=== PATIENT | male | born 1965 | race Caucasian/White ===

== ENCOUNTER 2016-11-30 07:59 | Inpatient (IN) | payer OTHER, MEDICAID ==
[2016-11-30] MEDS ORDERED: NS 1,000 ML IV ONE (08:10)
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
[2016-11-30] MEDS ORDERED: IOPAMIDOL (ISOVUE-300) 100 ML BTL IV ONE (08:15)
[2016-11-30 08:26] LABS: ABSOLUTE IMMATURE GRANULOCYTES 0.07 10^3/uL (0.00-0.10); ADD DIFF? NO; ADD MORPH? NO; ADD SCAN? YES; FRAGMENT RBC FLAG 0 (0-99); HEMOGLOBIN 16.2 g/dL (13.7-17.5); LEFT SHIFT FLG 0 (0-99); LIPEMIA HEMOLYSIS FLAG 90 (0-99); MEAN CELL HEMOGLOBIN 32.3 pg (27.9-34.1); MEAN CELL HEMOGLOBIN CONCENTR. 34.5 g/dL (32.4-36.7); MEAN CELL VOLUME 93.6 fL (81.5-99.8); MEAN PLATELET VOLUME 9.2 fL (8.7-11.7); PLATELET CLUMPS FLAG 20 (0-99); PLATELET COUNT 214 10^3/uL (150-400); RED BLOOD CELL COUNT 5.02 10^6/uL (4.40-6.38); RED CELL DISTRIBUTION WIDTH 12.2 % (11.5-15.2)
[2016-11-30 08:28] LABS: ATYPICAL LYMPHOCYTE FLAG 300 (0-99)
[2016-11-30 08:33] LABS: INR 0.97 (0.83-1.16); PROTIME(PATIENT) 12.8 SEC (12.0-15.0)
[2016-11-30 08:34] LABS: APTT 28.5 SEC (23.0-38.0)
[2016-11-30 08:37] LABS: ANION GAP 16 mEq/L (8-16); CALCIUM 9.3 mg/dL (8.5-10.4); CARBON DIOXIDE 22 mEq/l (22-31); CHLORIDE 107 mEq/L (97-110); CREATININE 0.8 mg/dL (0.7-1.3); ETHANOL SERUM 97 mg/dL (0-10); GLOMERULAR FILTRATION RATE > 60; GLUCOSE 81 mg/dL (70-100); POTASSIUM 4.6 mEq/L (3.5-5.2); SODIUM 145 mEq/L (134-144)
[2016-11-30 08:46] LABS: SCAN POSITIVE
[2016-11-30 08:51] LABS: PLATELET ESTIMATE ADEQUATE (ADEQ)
[2016-11-30] MEDS ORDERED: fentaNYL 100 MCG/2 ML INJ IVP ONE (09:10)
[2016-11-30] MEDS ORDERED: fentaNYL 100 MCG/2 ML INJ ONE (09:38)
[2016-11-30] MEDS ORDERED: HYDROmorphONE/DILAUDID 1 MG/ML SYR IVP ONE (09:45)
[2016-11-30] MEDS ORDERED: HYDROmorphONE/DILAUDID 1 MG/ML SYR ONE (09:57)
[2016-11-30] MEDS ORDERED: ACETAMINOPHEN 325 MG TAB PO PRN (10:27)
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
[2016-11-30] MEDS: HYDROCODONE/APAP 5/325 TAB PO PRN ×3 (11:15→22:42)
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
[2016-11-30] MEDS: oxyCODONE IR 5 MG TAB PO PRN ×3 (13:57→21:01)
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
--- NOTE | 2016-11-30 18:56 | TRAUMAPN ---
Assessment/Plan: repeat CT head normal. patient doing reasonably well. pain adeq control with oxycodone. change to floor status. anticipate dc tomorrow. Objective: Vital Signs Temp Pulse Resp BP Pulse Ox 37 C 73 18 150/100 H 94 11/30/16 16:00 11/30/16 18:00 11/30/16 18:00 11/30/16 18:00 11/30/16 18:00 11/29/16 11/30/16 12/01/16 05:59 05:59 05:59 Intake Total 1200 Output Total 2000 Balance -800 PT 12.8 SEC (12.0-15.0) 11/30/16 07:50 INR 0.97 (0.83-1.16) 11/30/16 07:50
[2016-11-30] MEDS: DOCUSATE SODIUM 100 MG CAP PO SCH (21:01)
[2016-12-01] MEDS: oxyCODONE IR 5 MG TAB PO PRN ×7 (00:50→22:36)
[2016-12-01] MEDS: HYDROCODONE/APAP 5/325 TAB PO PRN ×2 (04:13→10:24)
[2016-12-01] MEDS: DOCUSATE SODIUM 100 MG CAP PO SCH ×2 (07:11→19:30)
--- NOTE | 2016-12-01 07:15 | SOAPPROG ---
SOAP Progress Note Assessment/Plan: Assessment/Plan no new overnight issues. pain controlled with oxycodone. KHAN better. no visual changes. left side rib pain only. no SOB. no abd c/o. no new aches or pains with ambulation. AVSS. comfortable. neck nontender. heart regular. lungs clear. abd soft, nontender. left chest tenderness appropriate. ext - normal BUE/BLE without tenderness. doing well clinically. discharge today. social work eval to help with transportation to car compound/hotel. f/u prn. ok to use NSAID given normal head CT in addition to narcotic. Objective: Vital Signs Temp Pulse Resp BP Pulse Ox 36.6 C 70 20 154/98 H 94 12/01/16 00:00 12/01/16 00:00 12/01/16 00:00 12/01/16 00:00 12/01/16 00:00 11/30/16 12/01/16 12/02/16 05:59 05:59 05:59 Intake Total 1750 Output Total 2000 600 Balance -250 -600 PT 12.8 SEC (12.0-15.0) 11/30/16 07:50 INR 0.97 (0.83-1.16) 11/30/16 07:50 ICD10 Worksheet Patient Problems: Problems Problem Status Onset Alcohol intoxication Acute Rib fracture Acute
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
[2016-12-01] MEDS: ONDANSETRON 4 MG/2 ML VIAL IVP PRN ×2 (10:33→15:56)
[2016-12-02] MEDS: HYDROCODONE/APAP 5/325 TAB PO PRN ×3 (07:13→18:13)
[2016-12-02] MEDS: DOCUSATE SODIUM 100 MG CAP PO SCH ×2 (07:13→20:08)
[2016-12-02] MEDS: ONDANSETRON 4 MG/2 ML VIAL IVP PRN (08:30)
[2016-12-02] MEDS ORDERED: ONDANSETRON DISINTEGRATING 4 MG TAB PO PRN (08:32)
[2016-12-02] MEDS ORDERED: METOPROLOL SUCCINATE XR 25 MG TAB PO ONE (08:35)
[2016-12-02] MEDS ORDERED: ONDANSETRON DISINTEGRATING 4 MG TAB ONE (08:35)
[2016-12-02] MEDS ORDERED: METOPROLOL TARTRATE 25 MG TAB ONE (08:35)
[2016-12-02] MEDS ORDERED: METOPROLOL TARTRATE 25 MG TAB PO SCH (09:00)
[2016-12-02] MEDS ORDERED: amLODIPine BESYLATE 5 MG TAB ONE (09:28)
[2016-12-02] MEDS: amLODIPine BESYLATE 5 MG TAB PO SCH (09:30)
[2016-12-02] MEDS: oxyCODONE IR 5 MG TAB PO PRN ×4 (09:30→22:43)
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
--- NOTE | 2016-12-02 10:51 | CPEKG ---
Heart Rate: 71 RR Interval: 845 P-R Interval: 176 QRSD Interval: 106 QT Interval: 400 QTC Interval: 435 P Hernando: 34 QRS Hernando: 30 T Wave Hernando: 16 EKG Severity - NORMAL ECG - EKG Impression: SINUS RHYTHM Electronically Signed By: Josue Kingston 03-Dec-2016 08:40:31
[2016-12-02] MEDS ORDERED: LIDOCAINE 5% 1 EA PATCH TD ONE (11:12)
[2016-12-02] MEDS ORDERED: traMADol 50 MG TAB ONE (11:12)
[2016-12-02] MEDS: traMADol 50 MG TAB PO PRN ×2 (11:15→21:55)
[2016-12-02] MEDS ORDERED: LISINOPRIL 5 MG TAB ONE (12:42)
[2016-12-02] MEDS: LISINOPRIL 5 MG TAB PO SCH (12:45)
[2016-12-02] MEDS: LIDOCAINE 5% 1 EA PATCH TD SCH (12:47)
[2016-12-02] MEDS: KETOROLAC 15 MG/1 ML SDV IVP SCH ×2 (12:47→18:08)
[2016-12-02 16:11] VITALS: TEMP 98
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
[2016-12-02] MEDS ORDERED: LACTULOSE 20 GM/30 ML UDCUP PO PRN (18:42)
[2016-12-02] MEDS ORDERED: BISACODYL 10 MG SUPP PR PRN (18:42)
[2016-12-02] MEDS ORDERED: POLYETHYLENE GLYCOL 3350 17 GM PKT PO PRN (18:42)
[2016-12-02] MEDS ORDERED: MAGNESIUM HYDROXIDE 30 ML UDCUP PO PRN (18:42)
[2016-12-02] MEDS: SENNOSIDES/DOCUSATE SODIUM TAB PO SCH (20:08)
[2016-12-02] MEDS ORDERED: PATCH REMOVAL 1 EA PATCH TD SCH (21:00)
[2016-12-03] MEDS: HYDROCODONE/APAP 5/325 TAB PO PRN ×2 (00:23→10:28)
[2016-12-03] MEDS: KETOROLAC 15 MG/1 ML SDV IVP SCH ×2 (00:24→04:47)
[2016-12-03] MEDS: oxyCODONE IR 5 MG TAB PO PRN ×3 (04:46→11:38)
[2016-12-03] MEDS: traMADol 50 MG TAB PO PRN (06:29)
[2016-12-03 07:46] VITALS: BP 149/106; PULSE 70; RESP 14; O2SAT 96
[2016-12-03] MEDS: DOCUSATE SODIUM 100 MG CAP PO SCH (08:23)
[2016-12-03] MEDS: SENNOSIDES/DOCUSATE SODIUM TAB PO SCH (08:24)
[2016-12-03] MEDS: LIDOCAINE 5% 1 EA PATCH TD SCH (08:26)
[2016-12-03] MEDS: amLODIPine BESYLATE 5 MG TAB PO SCH (08:26)
[2016-12-03] MEDS: LISINOPRIL 5 MG TAB PO SCH (08:26)
--- NOTE | 2016-12-03 08:44 | SOAPPROG ---
SOAP Progress Note Assessment/Plan: Assessment: Plan: Subjective: vss, but diastolic still 105 will dc when ok with medicine service lungs clear heart nml no m, rrr Objective: Vital Signs Temp Pulse Resp BP Pulse Ox 36.7 C 70 14 149/106 H 96 12/02/16 22:47 12/03/16 07:45 12/03/16 07:45 12/03/16 07:45 12/03/16 07:45 12/02/16 12/03/16 12/04/16 05:59 05:59 05:59 Intake Total 700 826 Output Total 1900 3115 Balance -1200 -849 PT 12.8 SEC (12.0-15.0) 11/30/16 07:50 INR 0.97 (0.83-1.16) 11/30/16 07:50 ICD10 Worksheet Patient Problems: Problems Problem Status Onset Alcohol intoxication Acute Rib fracture Acute
[2016-12-03] MEDS ORDERED: LIDOCAINE 5% 1 EA PATCH TD SCH (09:00)
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
--- NOTE | 2016-12-03 11:23 | HOSPPROG ---
Hospitalist Progress Note Assessment/Plan: A/P #poorly controlled htn in the setting of acute pain -continue norvasc 5/lisinopril 5 that was started yesterday -agree with plans for close followup at [facility] for htn management Ok to DC with outpatient followup Subjective: no chest pain. no headache. continues to have severe pain in his left ribs with inspiration Objective: Vital Signs Temp Pulse Resp BP Pulse Ox 36.7 C 70 14 149/106 H 96 12/02/16 22:47 12/03/16 07:45 12/03/16 07:45 12/03/16 07:45 12/03/16 07:45 12/02/16 12/03/16 12/04/16 05:59 05:59 05:59 Intake Total 700 826 Output Total 1900 1675 Balance -1200 -849 PT 12.8 SEC (12.0-15.0) 11/30/16 07:50 INR 0.97 (0.83-1.16) 11/30/16 07:50 - Physical Exam Cardiovascular: regular rate and rhythym, no murmur, rub, or gallop Respiratory: no respiratory distress, no rales or rhonchi, clear to auscultation ICD10 Worksheet Patient Problems: Problems Problem Status Onset Rib fracture Acute Alcohol intoxication Acute
== END 2016-12-03 11:43 | disposition home or self-care (01) | DRG 205 ==
LOC: OBSVTOIN 10:30 → F2N 10:34 → F3N 12-01 17:06
PROVIDERS: ADMIT Surgery; ATTEND Surgery
DX: S22.32XA Fracture of one rib, left side, initial encounter for closed fracture (principal); S06.6X0A Traumatic subarachnoid hemorrhage without loss of consciousness, initial encounter; F10.129 Alcohol abuse with intoxication, unspecified; Y90.4 Blood alcohol level of 80-99 mg/100 ml; I10 Essential (primary) hypertension; V48.5XXA Car driver injured in noncollision transport accident in traffic accident, initial encounter; Y92.410 Unspecified street and highway as the place of occurrence of the external cause; Z59.0 Homelessness
CPT/HCPCS: 80305; 82947-QW; 92507-GN; 92523-GN; 96374; 97161-GP; 97165-GO; G0480; J1170; J2405; J3010; Q9967

== ENCOUNTER 2017-03-26 18:44 | Emergency (ER) | payer MEDICAID, OTHER ==
[2017-03-26 18:52] VITALS: TEMP 98.2
--- NOTE | 2017-03-26 19:22 | EDPHY ---
H & P Smoking Status: Light smoker Time Seen by Provider: 03/26/17 19:22 HPI/ROS: CHIEF COMPLAINT: Shortness of breath, cough HISTORY OF PRESENT ILLNESS: This patient is a 51 year old male complaining of productive cough and shortness of breath worsening over the past few weeks. He initially had cold symptoms and associated cough, but now his cough has become more productive with white and green phlegm. He endorses shortness of breath and subjective fever. No chills, chest pain, vomiting, or other associated symptoms. REVIEW OF SYSTEMS: A 10 point review of systems was performed and is negative with the exception of the elements mentioned in the history of present illness. (Juanita Preston) Past Medical/Surgical History: Denies. (Juanita Preston) Social History: Occasional tobacco use. Single. Lives in [place]. (Juanita Preston) Physical Exam: General Appearance: Frequent moist cough. Alert, no distress Eyes: Pupils equal and round, no conjunctival pallor or injection ENT, Mouth: Mucous membranes moist Neck: Normal inspection Respiratory: Lungs are clear to auscultation, no wheezing. Cardiovascular: Regular rate and rhythm Gastrointestinal: Abdomen is soft and non- tender Neurological: A&O, nonfocal, normal gait Skin: Warm and dry, no rash Extremities: Nontender, no pedal edema Psychiatric: Mood and affect normal (Juanita Preston) Constitutional: Initial Vital Signs Temperature (C) 36.8 C 03/26/17 18:50 Heart Rate 93 03/26/17 18:50 Respiratory Rate 22 H 03/26/17 18:50 Blood Pressure 145/94 H 03/26/17 18:50 O2 Sat (%) 96 03/26/17 18:50 O2 Delivery Mode Room Air Allergies/Adverse Reactions: No Known Allergies Allergy (Verified 03/26/17 18:49) Home Medications: Medication Instructions Recorded Albuterol [Proventil] 2 puffs IH TID PRN #1 aerosol 03/26/17 Azithromycin [Zithromax] 250 mg PO DAILY #6 tab 03/26/17 Medical Decision Making - Diagnostics Imaging: I viewed and interpreted images myself ED Course/Re-evaluation: 51 year old male presents with 2-3 week history of worsening cough. Plan for DuoNeb, chest x-ray. Chest x-ray negative for pneumonia. The patient is feeling better following DuoNeb administration. Plan to discharge home in good condition with prescription for Azithromycin and Albuterol inhaler. Follow up and return precautions discussed. (Juanita Preston) This patient was seen by Dr. Preston and not by me (Ronaldo Hinojosa) - Data Points Medications Given: Discontinued Medications Albuterol/Ipratropium (Duoneb) 3 ml IH EDNOW ONE Stop: 03/26/17 20:01 Last Admin: 03/26/17 20:13 Dose: 3 ml Departure - Departure Disposition: Home, Routine, Self-Care Clinical Impression: Acute bronchitis Condition: Good Instructions: Acute Bronchitis (ED) Additional Instructions: 1. Take your z-pack as prescribed. It is important to finish your entire course of antibiotics even if you are feeling better. 2. Use your inhaler as prescribed for difficulty breathing. 3. Follow up with your primary care provider for continued management of symptoms. 4. Return to the emergency department for high fever, increased difficulty breathing, chest pain, or other worsening of condition. Referrals: Efrain Garibay MD [Medical Doctor] - As per Instructions Prescriptions: Albuterol [Proventil] 2 puffs IH TID PRN #1 aerosol PRN Reason: Wheezing Azithromycin [Zithromax] 250 mg PO DAILY #6 tab Report Scribed for: Juanita Preston Report Scribed by: Ifrah Nagy Date of Report: 03/26/17 Time of Report: 19:49 Physician Review and Approval Statement: 03/26/17 19:49 Portions of this note were transcribed by a medical office assistant instructor. I personally performed a history, physical exam, medical decision making, and confirmed accuracy of information the transcribed note. (Juanita Preston)
[2017-03-26] MEDS ORDERED: IPRATROPIUM/ALBUTEROL 3 ML DEYVIAL IH ONE (20:00)
[2017-03-26 20:27] VITALS: BP 158/99; PULSE 82; RESP 16; O2SAT 94
== END 2017-03-26 20:26 | disposition home or self-care (01) ==
LOC: UNDOADMIN 19:55
DX: J20.8 Acute bronchitis due to other specified organisms (principal)

== ENCOUNTER 2018-10-01 08:25 | Day surgery (SDC) | payer MEDICAID ==
[2018-10-01] MEDS ORDERED: LR 1,000 ML IV ONE (08:37)
[2018-10-01] MEDS ORDERED: BUPIVACAINE 0.25% 30 ML SDV ONE (08:47)
[2018-10-01] MEDS ORDERED: EPINEPHrine 1 MG/ML INJ ONE (08:48)
[2018-10-01] MEDS ORDERED: ceFAZolin 2 GM/DEXTROSE 100 ML IV ONE (09:25)
--- NOTE | 2018-10-01 09:25 | PDHPUP ---
History & Physical Update H&P update statement: This history and physical update is based on an assessment of the patient which was completed after admission or registration (within 24 hours), but prior to the surgery/procedure. H&P update: H&P reviewed & patient examined, no change in patient's condition since H&P completed
[2018-10-01] MEDS ORDERED: CEFAZOLIN 2 GM/DEXTROSE/100 ML BAG IV ONE (09:26)
[2018-10-01] MEDS ORDERED: fentaNYL 100 MCG/2 ML INJ ONE ×3 (09:33→13:06)
[2018-10-01] MEDS ORDERED: MIDAZOLAM 2 MG/2 ML VIAL IVP ONE (09:36)
--- NOTE | 2018-10-01 09:36 | PDANEPAE ---
ANE History of Present Illness pt here for shoulder arthroscopy L ANE Past Medical History - Cardiovascular History Hx Hypertension: No Hx Arrhythmias: No Hx Chest Pain: No Hx Coronary Artery / Peripheral Vascular Disease: No Hx CHF / Valvular Disease: No Hx Palpitations: No Cardiovascular History Comment: RUNS MODERATELY ELEV 140/80 - Pulmonary History Hx COPD: No Hx Asthma/Reactive Airway Disease: No Hx Recent Upper Respiratory Infection: No Hx Oxygen in Use at Home: No Hx Sleep Apnea: No Sleep Apnea Screening Result - Last Documented: Negative - Neurologic History Hx Cerebrovascular Accident: No Hx Seizures: No Hx Dementia: No - Endocrine History Hx Diabetes: No - Renal History Hx Renal Disorders: No - Liver History Hx Hepatic Disorders: No - Neurological & Psychiatric Hx Hx Neurological and Psychiatric Disorders: No - Cancer History Hx Cancer: No - Congenital Disorder History Hx Congenital Disorders: No - GI History Hx Gastrointestinal Disorders: No - Other Health History Other Health History: DVT - 1979 TXD W/HEPARIN - NONE SINCE - Chronic Pain History Chronic Pain: No - Surgical History Prior Surgeries: R SHOULDER. VASECTOMY. COLONOSCOPY. HERNIA ANE Review of Systems Review of systems is: negative Review of Systems: - Exercise capacity Exercise capacity: >=4 METS METS (RN): 4 METS ANE Patient History - Allergies Allergies/Adverse Reactions: No Known Allergies Allergy (Verified 10/01/18 08:45) - Home Medications Home medications: home medication list seen and reviewed Home Medications: Ibuprofen 400 mg PO DAILY 10/01/18 [Last Taken 09/24/18] - NPO status NPO Since - Liquids (Date): 09/30/18 NPO Since - Liquids (Time): 19:00 NPO Since - Solids (Date): 09/30/18 NPO Since - Solids (Time): 19:00 - Smoking Hx Smoking Status: Light smoker - Family Anes Hx Family Hx Anesthesia Complications: NEG ANE Labs/Vital Signs - Vital Signs Vital Signs: reviewed preoperatively; see RN documention for details Blood Pressure: 150/100 Heart Rate: 71 Respiratory Rate: 16 O2 Sat (%): 96 Height: 187.96 cm Weight: 124.738 kg ANE Physical Exam - Airway Neck exam: FROM Mallampati Score: Class 1 Mouth exam: normal dental/mouth exam - Pulmonary Pulmonary: no respiratory distress - Cardiovascular Cardiovascular: regular rate and rhythym - ASA Status ASA Status: II ANE Anesthesia Plan Anesthesia Plan: GA w LMA Regional Anesthesia: interscalene BP NB
[2018-10-01] MEDS ORDERED: PROPOFOL/EMULSION 500 MG/50 ML BOTTLE IV ONE ×2 (09:52→10:57)
[2018-10-01] MEDS ORDERED: BUPIVACAINE 0.5% 30 ML SDV ONE (09:59)
[2018-10-01] MEDS ORDERED: fentaNYL 100 MCG/2 ML INJ IV ONE (10:00)
[2018-10-01] MEDS ORDERED: DEXAMETHASONE 4 MG/ML VIAL ONE ×2 (10:04)
[2018-10-01] MEDS ORDERED: DIAZEPAM 5 MG/ML 1 ML SYR IVP PRN (10:13)
[2018-10-01] MEDS ORDERED: NS 500 ML IV PRN (10:13)
[2018-10-01] MEDS ORDERED: NALOXONE HCL 0.4 MG/ML INJ IVP PRN ×2 (10:13→10:14)
[2018-10-01] MEDS ORDERED: ALBUTEROL 3 ML DEYVIAL IH PRN (10:13)
[2018-10-01] MEDS ORDERED: LR 500 ML IV PRN (10:13)
[2018-10-01] MEDS ORDERED: PROMETHAZINE HCL 25 MG/ML INJ IVP PRN (10:13)
[2018-10-01] MEDS ORDERED: fentaNYL 100 MCG/2 ML INJ IVP PRN (10:13)
[2018-10-01] MEDS ORDERED: ONDANSETRON 4 MG/2 ML VIAL IVP PRN (10:13)
[2018-10-01] MEDS ORDERED: oxyCODONE IR 5 MG TAB PO PRN (10:14)
[2018-10-01] MEDS ORDERED: HYDROmorphONE/DILAUDID 2 MG/ML INJ IVP PRN (10:14)
[2018-10-01] MEDS ORDERED: ACETAMINOPHEN 500 MG TAB PO PRN (10:14)
[2018-10-01] MEDS ORDERED: KETAMINE 200 MG/20 ML VIAL ONE (10:39)
[2018-10-01] MEDS ORDERED: HYDROmorphONE/DILAUDID 2 MG/ML INJ ONE (11:24)
[2018-10-01] MEDS ORDERED: KETOROLAC 30 MG/1 ML SDV ONE (13:03)
--- NOTE | 2018-10-01 13:26 | POSTANESTH ---
Post Anesthetic Evaluation Cardiovascular Status: Normal, Stable Respiratory Status: Normal, Stable Level of Consciousness/Mental Status: Mildly Sleepy, Arousable Pain Control: Adequate, Prn Tx Ordered Nausea/Vomiting Control: Adequate, Prn Tx Ordered Complications Possibly Related to Anesthesia: None Noted
--- NOTE | 2018-10-01 14:57 | GOP ---
[f rep st] OPERATIVE REPORT DATE OF OPERATION: 10/01/2018 SURGEON: Christoph Hoyos MD CAREER DEVELOPMENT ENGINEER: Violet Hein RN, was the 1st assist for the surgery. The 1st assist was medically necessary for retraction, and safe and successful completion of this case. ANESTHESIA: General plus block. PREOPERATIVE DIAGNOSIS: 1. Left shoulder biceps tendinitis. 2. Left shoulder impingement syndrome. 3. 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 POSTOPERATIVE DIAGNOSIS: 1. Left shoulder biceps tendinitis. 2. Left shoulder impingement syndrome. 3. 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 4. Left shoulder arthritis, glenohumeral. PROCEDURE PERFORMED: 1. Shoulder arthroscopy with extensive debridement of anterior and posterior labrum, posterior glenoid, biceps anchor, and synovectomy. 2. Left shoulder subacromial decompression. 3. Left shoulder open biceps tenodesis. FINDINGS: ESTIMATED BLOOD LOSS: Less than 5 cc. INDICATIONS: The patient is a 53-year-old male who had a long history of chronic left shoulder pain. He had seen me in the office for this. I tried conservative treatment including therapy and injections. He had modest improvement after a biceps injection, but the pain returned. MRI was performed which showed biceps tendinitis and possible split tear of the biceps as well as rotator cuff tendinopathy, possible cartilage thinning at the glenohumeral joint , specifically at the posterior glenoid, as well as degenerative labral tears. As he had failed conservative treatment, surgery was indicated. We discussed with him risks and benefits. Risks include pain, bleeding, infection, damage to surrounding structures, stiffness, weakness biceps tendon rupture, cramping, adhesive capsulitis, incomplete reduction of pain or worsened pain, need for further surgery. The patient understood these risks and wished to proceed. DESCRIPTION OF PROCEDURE: The patient was seen in preoperative holding area, was given opportunity to ask questions. All his questions were answered. Consent was signed. Surgical site was marked. He was transferred to operative suite. Care was taken to pad all bony prominences on the operating room table. Great care was taken to transfer him to the operating room table. He was carefully placed in a beach chair position. Great care was taken to ensure that all bony prominences were padded in the beach chair position, that his head was well secured and his eyes were secured and well padded. A time-out was called including surgical and anesthesia teams confirming the surgical site and procedure performed. 2 g of Ancef were given prior to incision. The left upper extremity was prepped and draped in usual sterile fashion for shoulder arthroscopy. I first made a standard posterior portal for shoulder arthroscopy and entered the joint through the posterior portal then I made a standard anterior rotator interval portal right away. This was made in the standard fashion. I placed the cannula in there then I placed a shaver into the shoulder and began my debridement and diagnostic arthroscopy with findings as follows. 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 He had patches of grade 4 chondromalacia all over his humeral head posteriorly. There was extensive synovitis throughout the joint. There were extensive degenerative labral tears anterior and posteriorly. There was a synovitis over the biceps. The rotator cuff was intact. I then began the debridement using a shaver. I debrided the anterior posterior degenerative labral tears. I performed a biceps tenotomy with the basket cutter and debrided the anchor. I performed a synovectomy of the shoulder in the posterior portal as well as the anterior portal. Debrided some of the frayed cartilage over the posterior glenoid. I then inspected the rotator cuff which was intact. Then I placed the scope into the subacromial position. I then began the bursectomy. Using an arthroscopic wand, I was able to visualize the subacromial space and visualize the rotator cuff. It was intact again. Then I performed a partial acromioplasty with the bur. I performed a acromioplasty of the anterolateral corner. After this was done, the arthroscopic instruments were removed. I then performed a biceps tenodesis and made an about 1-1/2-inch incision just inferior to his pec insertion. Carefully dissected down to the level of his biceps. I visualized the shoulder and the biceps then I visualized the long head of the biceps. I then pulled the long head of the biceps out after the tenotomy. I prepped the bone in the groove, placed an Arthrex 1.7 FiberTak anchor into the groove then I secured the biceps through the sutures in the anchor. This was tensioned at the musculotendinous junction , tied to this junction securely, and tied down the other suture securely. Cut the remainder of the biceps short. Irrigated copiously with sterile saline. I closed this wound in layers with 3-0 and 4-0 Monocryl buried, and the arthroscopic portals were closed in standard fashion with interrupted 4-0 nylon. Sterile dressings were applied. Patient placed in a sling. He tolerated the procedure well and was taken back in stable condition. POSTOPERATIVE CONDITION: Stable. POSTOPERATIVE PLAN: The patient is to leave to [place] tomorrow. We discussed with him the difficulties of this and pain control as he will not be able to get any pain meds refilled by me while he is in another state. If he should have any complications while in [place] he will need to see somebody over there. I discussed with him the importance of this and the issues with flying back directly after a surgery. He admitted that he has poor pain tolerance and resistance to opioids. For this reason, I wrote him a larger than usual prescription of oxycodone due to his tolerance. I discussed with him that the goal is to come off the opioids as soon as possible and to also use Tylenol and ibuprofen as adjuncts. If he should either require abnormal amounts of pain medication, he will need to seek the attention of a pain specialist. /[id number]/MODL MTDD
[2018-10-01 15:45] VITALS: BP 146/100
== END 2018-10-01 15:50 | disposition home or self-care (01) ==
LOC: FSGY 08:25
PROVIDERS: ATTEND Orthopaedic Surgery Hand Surgery
DX: M75.22 Bicipital tendinitis, left shoulder (principal); M75.112 Incomplete rotator cuff tear or rupture of left shoulder, not specified as traumatic; M24.112 Other articular cartilage disorders, left shoulder; Z86.718 Personal history of other venous thrombosis and embolism
CPT/HCPCS: C1713; J0171; J0690; J1100; J1170; J1885; J2250; J2704; J3010